=== PATIENT | male | born 1985 | race Caucasian/White ===

== ENCOUNTER 2020-02-21 14:37 | Emergency (ER) | payer OTHER, SELFPAY ==
[2020-02-21 14:51] VITALS: BP 125/83; PULSE 66; RESP 16; TEMP 36.6; O2SAT 98
--- NOTE | 2020-02-21 14:53 | DI.RAD.S_ITS ---
PROCEDURE: XR ELBOW RT MIN 3V INDICATIONS: glf, lt elbow/upper arm pain TECHNIQUE: 3 views of the elbow were acquired. COMPARISON: None. FINDINGS: Bones: No fractures or dislocations. No suspicious bony lesions. Soft tissues: No elbow joint effusion. No suspicious soft tissue calcifications. IMPRESSION: No acute elbow fracture or dislocation. No joint effusion. Dictated by: Severiano Malloy M.D. on 02/21/2020 at 15:32 Approved by: Severiano Malloy M.D. on 02/21/2020 at 15:33
--- NOTE | 2020-02-21 14:53 | DI.RAD.S_ITS ---
PROCEDURE: XR HUMERUS RT 2V INDICATIONS: glf, lt elbow/upper arm pain TECHNIQUE: Two views of the humerus were acquired. COMPARISON: None. FINDINGS: Bones: No fractures or dislocations. No suspicious bony lesions. Soft tissues: No suspicious soft tissue calcifications. IMPRESSION: No acute humeral fracture or dislocation. Dictated by: Severiano Malloy M.D. on 02/21/2020 at 15:33 Approved by: Severiano Malloy M.D. on 02/21/2020 at 15:36
--- NOTE | 2020-02-21 15:26 | ED.UPPEXIN ---
HPI - Extremity Injury (Upper) General Chief Complaint: Extremity Injury, Upper Stated Complaint: FALL AT WORK RIGHT ARM INJURY Time Seen by Provider: 02/21/20 15:01 Source: patient Mode of arrival: Ambulatory History of Present Illness HPI narrative: CC: Right arm injury HPI: The patient is a 34-year-old male works for the [employer] service and was stepping over a low-lying rope arm tripped when he caught his left leg and fell on his right arm. He said initially he did not have any pain or discomfort and then he developed pain and discomfort in the area of his right elbow. He developed a small abrasion over his distal left leg. He denies any head injury neck injury back injury chest injury abdominal injury. He has had no nausea vomiting diarrhea incontinence of urine or stool no shortness of breath. The patient was sent to the hospital to be evaluated because of the injury on work. He denies any asthma hypertension diabetes mellitus. He does not smoke cigarettes drink alcohol or use any marijuana. He denies any recent fever chills sweats headache loss of vision difficulty swallowing chest pain cough shortness of breath, back pain abdominal pain nausea vomiting or diarrhea. Related Data Allergies Allergy/AdvReac Type Severity Reaction Status Date / Time No Known Drug Allergies Allergy Verified 07/14/19 13:08 Review of Systems Review of Systems Narrative: Review of systems were all negative except for those mentioned in history of present illness. Patient History Social History Smoking Status: Never smoker Smoking Status: Never smoker Exam Narrative Exam Narrative: PHYSICAL EXAM: CONSTITUTIONAL: Awake, Alert, Oriented, Coherent, Cooperative in NAD. Does not appear toxic or ill. Sitting on the edge of the bed. He is ambulatory to Radiology without any difficulty or ataxia. HEAD: AT/NC EENT: PERRL, FROM of eyes, no discharge, no nystagmus NOSE:No epistaxis or nasal drainage MOUTH:Oral mucosa is moist and pink, NECK: Supple, no obvious JVD, Trachea is midline without stridor, no palpable LN. SPINE: Palpation of the cervical, Thoracic, Lumbar or Sacral spine reveals no gross deformity or tenderness. No CVA tenderness. THORAX: No deformity, retractions, chest wall tenderness. LUNGS: Clear, symmetrical breath sounds without respiratory distress. HEART: Normal heart tones, regular rhythm and rate without murmur. ABDOMEN: Soft, non-tender, no guarding, rebound, rigidity or palpable mass. EXTREMITIES: No edema, deformity, the patient has a tattoo sleeve over his right arm. He is able to flex and extend his right elbow he is able to pronate and supinate the right elbow. He has no tenderness to palpation over the radial head. He has no tenderness to palpation over the distal of radius or ulna he is able to flex extend adduct and abduct his wrist with full range of motion of the fingers in his hand. The patient is able to passively abduct and adduct his right shoulder as well as internal and external rotation. Over the anterior left leg the patient has a small erythematous abrasion that corresponds to the with of a rope. SKIN: No other rash, bruising, petechiae or purpura noted.. NEURO: Awake, alert, oriented, conversive, cranial nerves II-XII are symmetrical , moves all 4 extremities and is ambulatory. MENTAL HEALTH: Does not appear anxious or depressed. Initial Vital Signs Initial Vital Signs: Vital Signs Temperature 97.9 F 02/21/20 14:51 Pulse Rate 66 02/21/20 14:51 Respiratory Rate 16 02/21/20 14:51 Blood Pressure 125/83 02/21/20 14:51 Pulse Oximetry 98 02/21/20 14:51 Course Course Course Narrative: 1539: X-ray of the patient's right elbow revealed: IMPRESSION: No acute elbow fracture or dislocation. No joint effusion. My review of the patient's humerus revealed no fracture. 1724: his urine drug screen remains pending it has not yet resulted. Orders Ordered: ED Orders 02/21/20 14:53 XR elbow RT min 3V Stat XR humerus RT 2V Stat 02/21/20 15:48 Ethanol (ETOH) Stat 02/21/20 16:55 Urine Drug Screen, Rapid Stat Vital Signs Vital signs: Vital Signs - 8 hr 02/21/20 14:51 Temperature 97.9 F Pulse Rate 66 Respiratory Rate 16 Blood Pressure 125/83 Pulse Oximetry 98 MDM - Extremity Injury (Upper) Lab Data Labs: Lab Results 02/21/20 02/21/20 Range/Units 15:48 16:55 U Opiates 300ng/mL cut Negative (Negative) Ur Oxycodone Screen Negative (Negative) Urine Methadone Screen Negative (Negative) Ur Barbiturates Screen Negative (Negative) U Tricyclic Antidepress Negative (Negative) Ur Phencyclidine Scrn Negative (Negative) Ur Amphetamines Screen Negative (Negative) U Methamphetamines Scrn Negative (Negative) Ur MDMA Scrn (Ecstasy) Negative (Negative) U Benzodiazepines Scrn Negative (Negative) Urine Cocaine Screen Negative (Negative) U Marijuana (THC) Screen Negative (Negative) Ethyl Alcohol < 10 ( - 10) mg/dL Discharge Plan Departure Patient Disposition: Home Clinical Impression: Arm contusion Qualifiers: Encounter type: initial encounter Laterality: right Qualified Code(s): S40.021A - Contusion of right upper arm, initial encounter Abrasion of leg Qualifiers: Encounter type: initial encounter Laterality: left Qualified Code(s): S80.812A - Abrasion, left lower leg, initial encounter Instructions: DI for Contusion, DI for Muscle Strain, DI for Abrasion Activity Restrictions/Additional Instructions: 1. The results of your urine drug screen have not resulted. 2. For any pain and discomfort you can take 3, 200 mg over the counter ibuprofen tabs every 6 hours as needed for pain and discomfort or 500 mg of acetaminophen every 4-6 hours. 3. For any areas that may swell you can apply ice compresses every 2 hours for 20-30 minutes while awake as tolerated 4. Your x-rays were negative for any fractures or dislocations. 5. Clinically, you should be able to return to work. There is no gross injury other than bruising and possible muscle strain secondary to your trip and fall. If you continue to have symptoms you need to follow up with the [employer] workman comp physician.
[2020-02-21 16:17] LABS: Ethanol (ETOH) < 10 mg/dL
[2020-02-21 17:25] LABS: UR Morphine/Opiate cutoff 300 Negative (Negative); Ur Creatinine Normal (Normal); Ur Specific Gravity Normal (Normal); Urine Amphetamines Negative (Negative); Urine Barbiturates Negative (Negative); Urine Benzodiazepines Negative (Negative); Urine Cocaine Negative (Negative); Urine MDMA Negative (Negative); Urine Methadone Negative (Negative); Urine Methamphetamines Negative (Negative); Urine Oxycodone Negative (Negative); Urine Phencyclidine Negative (Negative); Urine Tetrahydrocannabinol Negative (Negative); Urine Tricyclic Antidepressant Negative (Negative); Urine pH Normal (Normal)
== END 2020-02-21 17:46 | disposition home or self-care (01) ==
PROVIDERS: Emergency Provider Emergency Medicine
DX: S40.021A Contusion of right upper arm, initial encounter (principal); M25.521 Pain in right elbow; S80.812A Abrasion, left lower leg, initial encounter; W19.XXXA Unspecified fall, initial encounter; Y99.0 Civilian activity done for income or pay
CPT/HCPCS: 36415; 73060; 73080; 80305; 80320; 99283

== ENCOUNTER → 2020-10-24 14:49 | Outpatient (CLI) | payer OTHER, SELFPAY ==
[2020-10-24] MEDS: COVID-19 VACC #1, MRNA(MOD) 100 MCG/0.5 ML VIAL IM (15:03)
== END ==
PROVIDERS: Visit Provider Internal Medicine
DX: Z23 Encounter for immunization (principal)
CPT/HCPCS: 0011A; 91301

== ENCOUNTER → 2020-11-02 12:56 | Outpatient (CLI) | payer OTHER, SELFPAY ==
--- NOTE | 2020-11-02 12:57 | DI.RAD.S_ITS ---
PROCEDURE: XR FOOT RT MIN 3V INDICATIONS: Calcaneal pain, bone spurs vs stress fracture TECHNIQUE: 3 views of the foot were acquired. COMPARISON: None. FINDINGS: Bones: No fractures or dislocations. No suspicious bony lesions. Small dorsal calcaneal bone spur. Soft tissues: No tibiotalar joint effusion. Achilles tendon appears normal. IMPRESSION: Small dorsal calcaneal bone spur. Dictated by: Mona Carmen MD, PhD on 11/02/2020 at 13:19 Approved by: Mona Carmen MD, PhD on 11/02/2020 at 13:19
== END ==
PROVIDERS: Referring Provider Student in an Organized Health Care Education/Training Program; Visit Provider Student in an Organized Health Care Education/Training Program
DX: M79.671 Pain in right foot (principal); M77.31 Calcaneal spur, right foot
CPT/HCPCS: 73630

== ENCOUNTER → 2020-11-28 09:02 | Outpatient (CLI) | payer OTHER, SELFPAY ==
[2020-11-28] MEDS: COVID-19 VACC #2, MRNA(MOD) 100 MCG/0.5 ML VIAL IM (09:08)
== END ==
PROVIDERS: Visit Provider Internal Medicine
DX: Z23 Encounter for immunization (principal)
CPT/HCPCS: 0012A; 91301

== ENCOUNTER → 2021-05-27 14:50 | Outpatient (CLI) | payer OTHER, SELFPAY ==
--- NOTE | 2021-05-27 14:52 | DI.RAD.S_ITS ---
PROCEDURE: XR CHEST 2V INDICATIONS: constant cough post covid TECHNIQUE: 2 views of the chest were acquired. COMPARISON: None. FINDINGS: Surgical changes and devices: None. Lungs and pleura: Lungs are clear. No pleural effusions or pneumothorax. Mediastinum: Mediastinal contours are normal. Heart size is normal. Bones and chest wall: No suspicious bony abnormalities. Soft tissues appear unremarkable. IMPRESSION: No acute cardiopulmonary disease. Dictated by: Tremayne Silva RR Interpreted: Severiano Malloy MD on 05/27/2021 at 15:07 Transcribed by: DARIN on 05/27/2021 at 15:07 Approved by: Severiano Malloy M.D. on 05/27/2021 at 16:26
[2021-05-27 15:16] LABS: Add Manual Diff / Slide Review NO; Basophils Absolute Auto 100 /uL (0-100); Eosinophils Absolute Auto 200 /uL (0-450); Eosinophils Percent Auto 3.9 % (2-4); Hematocrit 40.7 % (41-53); Lymphocytes Absolute Auto 1900 /uL (1100-4500); Lymphocytes Percent Auto 33.6 % (25-40); Mean Corpuscular HGB Conc 34.5 % (30-36); Mean Corpuscular Hemoglobin 29.4 PG (26-34); Mean Corpuscular Volume 85.3 fL (80-100); Monocytes Absolute Auto 600 /uL (0-900); Neutrophils Absolute Auto 3000 /uL (1500-7000); Neutrophils Percent Auto 51.5 % (50-75); Platelet Count 185 X10^3/uL (150-400); Red Blood Cell Count 4.77 X10^6/uL (4.5-5.9); Red Cell Distribution Width 13.3 % (11.6-14.8); White Blood Cell Count 5.8 X10^3/uL (4.5-11.0)
[2021-05-27 16:01] LABS: COVID19 -Nasal RAPID Negative (Negative)
== END ==
PROVIDERS: PCP Family Medicine; Referring Provider Family Medicine; Visit Provider Family Medicine
DX: Z20.822 Contact with and (suspected) exposure to COVID-19 (principal); J40 Bronchitis, not specified as acute or chronic
CPT/HCPCS: 36415; 71046; 85025; 87635

== ENCOUNTER → 2021-05-28 14:19 | Outpatient (CLI) | payer OTHER, SELFPAY ==
[2021-05-29 13:02] LABS: Legionella pneumo Antigen Negative (Negative)
== END ==
PROVIDERS: PCP Family Medicine; Referring Provider Family Medicine; Visit Provider Family Medicine
DX: J40 Bronchitis, not specified as acute or chronic (principal)
CPT/HCPCS: 87449